=== PATIENT | female | born 1995 | race Caucasian/White ===

== ENCOUNTER → 2016-10-15 | Day surgery (SDC) | payer OTHER ==
[~2016-10-15] MED LIST: ACETAMINOPHEN 1000 MG/100 ML VIAL IV ONE; ALBU6.7H INH; BUPIVACAINE/EPINEPHRINE 0.5% 50 ML VIAL ONE; CALNTAB; KETOROLAC TROMETHAMINE 30 MG/ML (IVP) VIAL IV PUSH ONE; LACTATED RINGER'S 1000 ML INJ 1,000 ML ONE; MIDAZOLAM HCL 2 MG/2 ML VIAL ONE; ONDANSETRON HCL 4 MG/2 ML VIAL IV PUSH ONE; PROPOFOL 200 MG/20 ML AMP IV ONE; ceFAZolin 2 GM PREMIX 50 ML ONE; metroNIDAZOLE 500 MG INJ 100 ML IV ONE; oxyCODONE/ACETAMINOPHEN 5 MG/325 MG TAB ONE
--- NOTE | 2016-10-15 15:29 | TN ---
cc: RAFAEL MONTIEL MD DATE OF SURGERY: 10/15/2016 PREOPERATIVE DIAGNOSIS Biliary colic. POSTOPERATIVE DIAGNOSIS Biliary colic. PROCEDURE Laparoscopic cholecystectomy. SURGEON Rafael Montiel INFORMATION CLERK Staff. SPECIMENS Gallbladder to pathology. ESTIMATED BLOOD LOSS 10 cc. ANESTHESIA General. COMPLICATIONS No apparent complications. PROCEDURE IN DETAIL The patient was taken to the operating room, placed in a supine position. General anesthesia was induced. The abdomen was prepped and draped in usual sterile fashion. A surgical timeout was performed to verify correct patient, procedure and site. Local anesthetic was injected into the skin and subcutaneous tissue to the right of the umbilicus and a 5 mm port placed using direct laparoscopic visualization. The abdomen was insufflated to 15 mmHg with CO2 gas which the patient tolerated well. She was placed in reverse Trendelenburg position and turned slightly to the left. A 12 mm epigastric port was placed under laparoscopic visualization and one 5 mm right upper quadrant port. Attention was turned to the right upper quadrant and the infundibulum of the gallbladder was grasped and retracted laterally. The infundibulum had some chronic scarring and thickening but was not acutely inflamed. The peritoneum of the infundibulum was scored and the cystic duct and cystic artery were carefully dissected out using judicious use of hook electrocautery as well as a [place] dissector. Two clips were placed proximally on both structures, one distally, and they were transected. The gallbladder was removed from the gallbladder fossa using electrocautery. It was removed from the abdomen in an EndoCatch bag. The liver bed was hemostatic and there was no leakage of blood or bleeding from the cystic duct or artery. The abdomen was allowed to desufflate and trocars were removed. The fascia at the epigastric incision was closed with a single [id number] 0 Vicryl suture. The patient tolerated the procedure well, was extubated and taken to PACU in stable condition. Rafael Montiel MD JPAshley/LEIGH /2:31 PM /3:24 PM
== END | disposition home or self-care (01) ==
LOC: ESDC 11:38
PROVIDERS: ATTEND Surgery
DX: K80.50 Calculus of bile duct without cholangitis or cholecystitis without obstruction (principal)
CPT/HCPCS: 00790; 47562; 88304; J0131; J0690; J1885; J2250; J2405; J3010; J7120

== ENCOUNTER 2017-10-25 22:00 | Emergency (ER) | payer OTHER ==
[~2017-10-25] VITALS: Ht 162.6 cm; Wt 47.7 kg
[~2017-10-25 22:00] MED LIST changes: -ACETAMINOPHEN 1000 MG/100 ML VIAL IV ONE; -ALBU6.7H INH; -BUPIVACAINE/EPINEPHRINE 0.5% 50 ML VIAL ONE; +FLUTI220I INH; -KETOROLAC TROMETHAMINE 30 MG/ML (IVP) VIAL IV PUSH ONE; -LACTATED RINGER'S 1000 ML INJ 1,000 ML ONE; +LIDO5%T TOPICAL; -MIDAZOLAM HCL 2 MG/2 ML VIAL ONE; -ONDANSETRON HCL 4 MG/2 ML VIAL IV PUSH ONE; -PROPOFOL 200 MG/20 ML AMP IV ONE; +VALA1TAB PO; -ceFAZolin 2 GM PREMIX 50 ML ONE; -metroNIDAZOLE 500 MG INJ 100 ML IV ONE; -oxyCODONE/ACETAMINOPHEN 5 MG/325 MG TAB ONE
[2017-10-25 22:04] VITALS: BP 123/68; PULSE 97; RESP 18; TEMP 98; O2SAT 100
[2017-10-25] MEDS ORDERED: IBUPROFEN 600 MG TAB PO ONE (22:30)
--- NOTE | 2017-10-25 22:31 | PD ---
HPI Chief Complaint: Injury Time Seen by Provider: 22:20 Travel History International Travel<30 days: No Contact w/Intl Traveler<30days: No Traveled to known affect area: No History of Present Illness HPI Patient 21-year-old female who is "double jointed" to the point where she had to be worked up for Payton-Danlos syndrome which was negative presents emergency department for evaluation of right wrist pain. Patient states that she accidentally closed her wrist between a car door in the body of the car earlier today. She went to an urgent care facility where she had an x-ray and was referred immediately to the emergency department. She was given a disc with the physician there did not tell her what was wrong. She denies any other injuries. Denies any numbness and tingling in the fingers, states the pain is moderate, right wrist, context and associated signs and symptoms as above per [facility] Past Medical History Asthma: Yes ("seasonal") Diminished Hearing: No Respiratory: Yes (ASTHMA) Immunizations Current: Yes Tetanus Vaccination: Unknown ?: Not LMP: 5-15-18 Social History Alcohol Use: No Tobacco Use: No Substance Use: No Allergies-Medications (Allergen,Severity, Reaction): Coded Allergies: oxycodone (Verified Allergy, Severe, Hives, 10/25/17) Reported Meds & Prescriptions Reported Meds & Active Scripts Active Ibuprofen 600 Mg Tab 600 Mg PO Q6H PRN Take with food. Reported Flovent Hfa 12 GM Inh (Fluticasone Propionate) 220 Mcg/Act Inh 2 Puff INH BID Use daily at the same time. Review of Systems Except as stated in HPI: all other systems reviewed are Neg Physical Exam Narrative GENERAL: Well-nourished, well-developed patient. SKIN: Focused skin assessment warm/dry. HEAD: Normocephalic. EYES: No scleral icterus. No injection or drainage. NECK: Supple, trachea midline. No JVD or lymphadenopathy. CARDIOVASCULAR: Regular rate and rhythm without murmurs, gallops, or rubs. RESPIRATORY: Breath sounds equal bilaterally. No accessory muscle use. GASTROINTESTINAL: Abdomen soft, non-tender, nondistended. MUSCULOSKELETAL: No cyanosis, or edema. There is no gross deformity of the right wrist, cap refill is brisk in all 5 digits, motor and sensory intact. No tenderness at the elbow, contralateral extremity is within normal limits. No swelling, compartments are soft there is no bruising peer BACK: Nontender without obvious deformity. No CVA tenderness. Data Data Last Documented VS Vital Signs Date Time Temp Pulse Resp B/P (MAP) Pulse Ox O2 Delivery O2 Flow Rate FiO2 10/25/17 22:04 98.0 97 18 123/68 (86) 100 Orders Orders Wrist, Complete ([id number]) (10/25/17 ) Ibuprofen (Motrin) (10/25/17 22:30) Splint Or Brace Apply/Monitor (10/25/17 23:33) Ed Discharge Order (10/25/17 23:33) Cockup Hand Splint (10/26/17 ) MDM Medical Decision Making Medical Screen Exam Complete: Yes Emergency Medical Condition: Yes Differential Diagnosis Contusion, sprain, strain, fracture. Narrative Course Patient roomed in the emergency department, on external examination does not appear that the patient is suffered any trauma, is minimally tender to palpation about the distal radius. Patient had an x-ray performed which does show some widening of the scapholunate space. I think that this is probably a more chronic finding but because I have no previous x-rays for comparison recommended the patient be splinted and then follow-up with her orthopedic surgeon or Dr. Gagnon. She is agreeable. She is placed in the volar wrist splint. Discussed symptomatic management return to ED criteria. Diagnosis Primary Impression: Wrist contusion Qualified Codes: S60.211A - Contusion of right wrist, initial encounter Additional Impression: Scapho-lunate dissociation Referrals: Sumeet Gagnon MD Patient Instructions: General Instructions, Musculoskeletal Pain (ED) Additional Instructions: Follow up with your orthopedic surgeon within one week. Keep your splint dry. Recommend keeping it on for 2 weeks and then have repeat xrays. Med/Other Pt SpecificInfo: Prescription(s) given Scripts Ibuprofen (Ibuprofen) 600 Mg Tab 600 MG PO Q6H Y for Pain/Inflammation, #30 TAB 0 Refills Take with food. Prov: Domenic Ernandez MD 10/25/17 Disposition: 01 DISCHARGE HOME Condition: Stable Domenic Ernandez MD Oct 25, 2017 22:31
--- NOTE | 2017-10-25 23:31 | RADRPT ---
EXAM DATE: 10/25/2017 10:56 PM EDT AGE/SEX: 21 years / Female INDICATIONS: Entire right wrist pain. CLINICAL DATA: This is the patient's initial encounter. Patient reports that signs and symptoms have been present for 1 day and indicates a pain score of 8/10. MEDICAL/SURGICAL HISTORY: None. None. COMPARISON: No prior [facility] exams available for comparison. FINDINGS: No fracture is seen. There does appear to be some widening of the proximal scapholunate interval. The re appears to be some rotation of the scaphoid. This should correlate with any prior trauma. Radiocar pal joint is aligned. There is negative ulnar variance. CONCLUSION: Widening of the scapholunate interval with some suspected rotation of the scaphoid. This can be corre lated with any prior injury. Electronically signed by: Daniel Burgess MD 10/25/2017 11:30 PM EDT
[2017-10-25] MEDS ORDERED: IBUP-232 PO (23:37)
== END 2017-10-26 00:15 | disposition home or self-care (01) ==
LOC: PHEFT 22:00
DX: S60.211A Contusion of right wrist, initial encounter (principal); W23.0XXA Caught, crushed, jammed, or pinched between moving objects, initial encounter; J45.909 Unspecified asthma, uncomplicated
CPT/HCPCS: 73110; 99283; L3908